=== PATIENT | male | born 1955 | race American Indian/Alaskan Native ===

== ENCOUNTER 2017-04-03 20:30 | Emergency (ER) | payer MEDICARE ==
[2017-04-03 21:53] LABS: Bilirubin,Urine NEG (Negative); Blood,Urine NEG (Negative); Ketones,Urine NEG (Negative); Leukocyte Esterase,Urine NEG (Negative); Mucus,Urine FEW /HPF; Nitrite,Urine POS (Negative); Protein,Urine <15 mg/dL mg/dL (Negative); Urobilinogen,Urine < 2.0 mg/dL (<2.0)
[2017-04-04 06:19] VITALS: BP 170/82
--- NOTE | 2017-04-04 07:40 | Emergency Department Report ---
HPI - General Chief Complaint: Urogenital-Male Time Seen by Provider: 04/04/17 07:02 - HPI HPI: This is a 61-year-old -[place] male who presents to the emergency department from home, dropped off by his sister/chief engineer waterworks, with complaint of burning with urination and difficulty urinating for the past 2 days. The patient has some level of enlarged prostate or prostate issues as he has known elevated PSA levels and follows with Dr. Basurto. The patient has a history of schizophrenia which requires him to have his sister as his chief engineer waterworks. He denies any significant abdominal pain, nausea, vomiting fever. He also has a past medical history of COPD, but is not oxygen dependent, GERD, hypertension. He did not take anything for symptoms prior to presentation. ED Past Medical Hx - Past Medical History Previous Medical History?: Yes Hx Hypertension: Yes Hx Congestive Heart Failure: No Hx Diabetes: No Hx GERD: Yes Hx Psychiatric Treatment: Yes Hx Asthma: No Hx COPD: Yes Hx HIV: No - Surgical History Additional Surgical History: Kwesi foot surgery - Social History Smoking Status: Unknown if ever smoked - Medications Home Medications: Home Medications Medication Instructions Recorded Confirmed Last Taken Type Omeprazole [PriLOSEC] 20 mg PO QDAY 08/31/14 05/04/16 05/04/16 10:00 History 20mg amLODIPine [Norvasc] 10 mg PO DAILY 08/31/14 05/04/16 05/04/16 10:00 History 10mg Hydrochlorothiazide [HCTZ] 25 mg PO QDAY 04/27/16 05/04/16 05/04/16 10:00 History 25mg ARIPiprazole [Abilify TAB] 15 mg PO HS tablet 05/03/16 05/04/16 Unknown Rx cloZAPine [cloZAPine] 1.5 tab PO QHS 05/03/16 05/04/16 Unknown Rx Acetaminophen [Acetaminophen TAB] 650 mg PO Q4H PRN #1 tablet 05/14/16 Unknown Rx levETIRAcetam [Keppra TAB] 750 mg PO BID #60 tablet 05/14/16 Unknown Rx Ciprofloxacin HCl [Ciprofloxacin 500 mg PO BID #10 tablet 04/04/17 Unknown Rx TAB] ED Review of Systems ROS: Stated complaint: DIFFICULTY URINATING/PAIN Other details as noted in HPI Comment: All other systems reviewed and negative Constitutional: denies: chills, fever Eyes: denies: eye pain, eye discharge, vision change ENT: denies: ear pain, throat pain Respiratory: denies: cough, shortness of breath, wheezing Cardiovascular: denies: chest pain, palpitations Gastrointestinal: denies: nausea, vomiting Genitourinary: dysuria. denies: discharge Musculoskeletal: denies: back pain, joint swelling, arthralgia Skin: denies: rash, lesions Neurological: denies: headache, weakness, paresthesias Physical Exam - Physical Exam Vital Signs: Vital Signs 04/03/17 04/04/17 04/04/17 20:54 05:35 06:19 Temperature 97.9 F 98.1 F Pulse Rate 99 H 80 92 H Respiratory 20 20 22 Rate Blood Pressure 149/73 148/88 Blood Pressure 170/82 [Left] O2 Sat by Pulse 97 100 97 Oximetry Physical Exam: GENERAL: The patient is well-developed well-nourished. HEENT: Normocephalic. Atraumatic. Extraocular motions are intact. Patient has moist mucous membranes. NECK: Supple. Trachea is midline. CHEST/LUNGS: Clear to auscultation. There is no respiratory distress noted. HEART/CARDIOVASCULAR: Regular. There is no tachycardia. There is no gallop rub or murmur. ABDOMEN: Abdomen is soft, nontender. Patient has normal bowel sounds. There is no abdominal distention. SKIN: Skin is warm and dry. NEURO: The patient is awake, alert, and oriented. The patient is cooperative. The patient has no focal neurologic deficits. The patient has normal speech. MUSCULOSKELETAL: There is no tenderness or deformity. There is no limitation range of motion. There is no evidence of acute injury. : Patient now has a Summers catheter in place that is draining a large amount of concentrated urine. ED Course Vital Signs 04/03/17 04/04/17 04/04/17 20:54 05:35 06:19 Temperature 97.9 F 98.1 F Pulse Rate 99 H 80 92 H Respiratory 20 20 22 Rate Blood Pressure 149/73 148/88 Blood Pressure 170/82 [Left] O2 Sat by Pulse 97 100 97 Oximetry - Consultations Consultation #1: I spoke with the patient's sister/chief engineer waterworks to let her know of the findings of urinary retention, placement of a Summers catheter, the plan to switch her to a leg bag, and the need to follow-up with Dr. Basurto as soon as possible. 04/04/17 07:37 ED Medical Decision Making - Medical Decision Making 61-year-old male with a history of prostate issues presents with urinary retention and some dysuria. A Summers catheter was placed and the patient has put out about 1 L of concentrated urine. It was tested but the urinalysis does not show any current urinary tract infection. He will be switched to a leg bag and will remain intact until he can follow-up with his urologist, Dr. Basurto. The patient will be placed on antibiotics prophylactically as the Summers catheter can be a nidus for infection. However patient currently does not appear to be in any distress. Vital signs stable throughout his ED course. - Differential Diagnosis BPH, malignancy, urethral stricture Critical Care Time: No Critical care attestation.: If time is entered above; I have spent that time in minutes in the direct care of this critically ill patient, excluding procedure time. ED Disposition Clinical Impression: Urinary retention Disposition: DISCHARGED TO HOME OR SELFCARE Is pt being admited?: No Condition: Stable Instructions: Urinary Retention in Men (ED), Urinary Leg Bag (GEN) Additional Instructions: Please follow-up with your urologist as soon as possible. The Summers catheter will remain intact until you're able to follow up with urology. You've been placed on antibiotics prophylactically. Return to the emergency department with any development of fever, continued urinary retention, or any acute distress. Prescriptions: Ciprofloxacin HCl [Ciprofloxacin TAB] 500 mg PO BID #10 tablet Referrals: NANDINI BASURTO MD [Staff Physician] - [facility] Time of Disposition: 07:40
== END 2017-04-04 08:16 | disposition home or self-care (01) ==
LOC: ED 20:30
DX: R33.9 Retention of urine, unspecified (principal); I10 Essential (primary) hypertension; J44.9 Chronic obstructive pulmonary disease, unspecified
CPT/HCPCS: 51702; 81001; 87086

== ENCOUNTER 2017-06-04 09:27 | Emergency (ER) | payer MEDICARE ==
[2017-06-04 09:38] VITALS: BP 147/84
--- NOTE | 2017-06-04 10:12 | Emergency Department Report ---
ED Abdominal Pain HPI - General Chief Complaint: Abdominal Pain Stated Complaint: UNABLE TO URINATE/ Time Seen by Provider: 06/04/17 10:02 Source: patient, family Mode of arrival: Ambulatory Limitations: Physical Limitation - History of Present Illness Initial Comments: PATIENT HAS H/O URINE RETENTION, HIS CATHETER WAS NOT WORKING AND C/O LOWER ABDOMINAL PAIN AND DISTENSION. MD Complaint: abdominal pain -: Gradual Severity scale (0 -10): 10 Quality: fullness - Related Data Home Medications Medication Instructions Recorded Confirmed Last Taken Omeprazole [PriLOSEC] 20 mg PO QDAY 08/31/14 05/04/16 05/04/16 10:00 20mg amLODIPine [Norvasc] 10 mg PO DAILY 08/31/14 05/04/16 05/04/16 10:00 10mg Hydrochlorothiazide [HCTZ] 25 mg PO QDAY 04/27/16 05/04/16 05/04/16 10:00 25mg Previous Rx's Medication Instructions Recorded Last Taken Type ARIPiprazole [Abilify TAB] 15 mg PO HS tablet 05/03/16 Unknown Rx cloZAPine [cloZAPine] 1.5 tab PO QHS 05/03/16 Unknown Rx Acetaminophen [Acetaminophen TAB] 650 mg PO Q4H PRN #1 tablet 05/14/16 Unknown Rx levETIRAcetam [Keppra TAB] 750 mg PO BID #60 tablet 05/14/16 Unknown Rx Ciprofloxacin HCl [Ciprofloxacin 500 mg PO BID #10 tablet 04/04/17 Unknown Rx TAB] Allergies Allergy/AdvReac Type Severity Reaction Status Date / Time No Known Allergies Allergy Verified 06/04/17 09:38 ED Review of Systems ROS: Stated complaint: UNABLE TO URINATE/ Other details as noted in HPI Comment: All other systems reviewed and negative Constitutional: denies: chills, fever Respiratory: denies: cough, shortness of breath Cardiovascular: denies: chest pain, palpitations Endocrine: denies: excessive sweating Gastrointestinal: abdominal pain. denies: constipation Genitourinary: urgency, frequency. denies: hematuria, discharge, testicular pain, testicular mass Neurological: denies: headache ED Past Medical Hx - Past Medical History Hx Hypertension: Yes Hx Congestive Heart Failure: No Hx Diabetes: No Hx GERD: Yes Hx Psychiatric Treatment: Yes Hx Asthma: No Hx COPD: Yes Hx HIV: No - Surgical History Additional Surgical History: Kwesi foot surgery - Social History Smoking Status: Never Smoker Substance Use Type: None - Medications Home Medications: Home Medications Medication Instructions Recorded Confirmed Last Taken Type Omeprazole [PriLOSEC] 20 mg PO QDAY 08/31/14 05/04/16 05/04/16 10:00 History 20mg amLODIPine [Norvasc] 10 mg PO DAILY 08/31/14 05/04/16 05/04/16 10:00 History 10mg Hydrochlorothiazide [HCTZ] 25 mg PO QDAY 04/27/16 05/04/16 05/04/16 10:00 History 25mg ARIPiprazole [Abilify TAB] 15 mg PO HS tablet 05/03/16 05/04/16 Unknown Rx cloZAPine [cloZAPine] 1.5 tab PO QHS 05/03/16 05/04/16 Unknown Rx Acetaminophen [Acetaminophen TAB] 650 mg PO Q4H PRN #1 tablet 05/14/16 Unknown Rx levETIRAcetam [Keppra TAB] 750 mg PO BID #60 tablet 05/14/16 Unknown Rx Ciprofloxacin HCl [Ciprofloxacin 500 mg PO BID #10 tablet 04/04/17 Unknown Rx TAB] ED Physical Exam - General Limitations: No Limitations, Physical Limitation General appearance: alert, in distress - Neck Neck exam: Present: normal inspection. Absent: tenderness - Respiratory Respiratory exam: Present: normal lung sounds bilaterally. Absent: wheezes, rales - Cardiovascular Cardiovascular Exam: Present: tachycardia - GI/Abdominal GI/Abdominal exam: Present: soft, distended, tenderness. Absent: guarding, rebound - exam: Absent: testicular tenderness, urethral discharge, scrotal swelling External exam: Present: normal external exam - Neurological Exam Neurological exam: Present: alert, oriented X3, CN II-XII intact - Skin Skin exam: Present: warm, dry, intact ED Course Vital Signs 06/04/17 06/04/17 09:31 10:07 Temperature 98.5 F Pulse Rate 110 H Respiratory 16 16 Rate Blood Pressure 147/84 Blood Pressure 147/84 [Left] O2 Sat by Pulse 97 97 Oximetry - Reevaluation(s) Reevaluation #1: 06/04/17 11:08 PATIENT STATED THAT HE FEEL MUCH BETTER. ADVISED TO FOLLOW UP WITH HIS UROLOGIST IN THE NEXT 2-3 DAYS. ED Medical Decision Making - Medical Decision Making A LEIVA CATHETER PLACED, PATIENT IMMEDIATELY HAVE MORE THAN 1000ML OUT. HE STATED THAT HE FEEL MUCH BETTER. Critical care attestation.: If time is entered above; I have spent that time in minutes in the direct care of this critically ill patient, excluding procedure time. ED Disposition Clinical Impression: Abdominal pain, Urinary retention Disposition: DC-01 TO HOME OR SELFCARE Is pt being admited?: No Does the pt Need Aspirin: No Condition: Stable Instructions: Urinary Retention in Men (ED), Urinary Leg Bag (GEN) Referrals: PRIMARY CARE, [Primary Care Provider] - 3-5 Days
[2017-06-04 10:18] LABS: Bilirubin,Urine NEG (Negative); Blood,Urine MOD (Negative); Ketones,Urine NEG (Negative); Leukocyte Esterase,Urine LG (Negative); Nitrite,Urine NEG (Negative); Protein,Urine <15 mg/dL mg/dL (Negative); Urobilinogen,Urine < 2.0 mg/dL (<2.0)
== END 2017-06-04 11:26 | disposition home or self-care (01) ==
LOC: ED 09:27
DX: R33.9 Retention of urine, unspecified (principal); R10.30 Lower abdominal pain, unspecified; I10 Essential (primary) hypertension; K21.9 Gastro-esophageal reflux disease without esophagitis; J44.9 Chronic obstructive pulmonary disease, unspecified
CPT/HCPCS: 51702; 81001

== ENCOUNTER 2017-06-15 12:15 | Inpatient (IN) | payer MEDICARE ==
[2017-06-13 15:23] LABS: Basophils % (Auto) 0.9 % (0.0-1.8); Eosinophils % (Auto) 2.3 % (0.0-4.3); Hematocrit 34.2 % (35.5-45.6); Hemoglobin 11.3 gm/dl (11.8-15.2); Mean Corpuscular HGB Conc 33 % (32-34); Mean Corpuscular Hemoglobin 30 pg (28-32); Mean Corpuscular Volume 90 fl (84-94); Platelet Count 298 K/mm3 (140-440); Red Blood Count 3.82 M/mm3 (3.65-5.03); Red Cell Distribution Width 14.6 % (13.2-15.2); White Blood Count 9.1 K/mm3 (4.5-11.0)
[2017-06-13 15:36] LABS: INR 0.93 (0.87-1.13)
[2017-06-13 15:37] LABS: Partial Thromboplastin Time 28.3 Sec. (24.2-36.6)
[2017-06-13 18:20] LABS: Alanine Aminotransferase 12 units/L (7-56); Albumin 3.6 g/dL (3.9-5); Albumin/Globulin Ratio 0.9 %; Alkaline Phosphatase 79 units/L (35-129); Anion Gap 20 mmol/L; BUN/Creatinine Ratio 16.66; Blood Urea Nitrogen 15 mg/dL (9-20); Calcium 8.6 mg/dL (8.4-10.2); Carbon Dioxide 25 mmol/L (22-30); Chloride 96.6 mmol/L (98-107); Glucose 97 mg/dL (75-100); Potassium 3.1 mmol/L (3.6-5.0); Sodium 138 mmol/L (137-145); Total Protein 7.4 g/dL (6.3-8.2)
[~2017-06-15 12:15] MED LIST: NACL 0.9% 1000 ML 1,000 ML IV SCH; NACL 0.9% IR ONE; PEPCID PO NR; SORBITOL-MANNITOL IRRIG IR ONE
[2017-06-15] MEDS ORDERED: DIPRIVAN 10 MG/ML IV ONE ×2 (13:24→23:57)
[2017-06-15] MEDS ORDERED: DILAUDID ONE ×2 (13:24→17:34)
[2017-06-15] MEDS ORDERED: XYLOCAINE MPF 2% ONE ×2 (13:29→23:57)
[2017-06-15] MEDS ORDERED: DECADRON ONE (14:00)
--- NOTE | 2017-06-15 14:00 | Anesthesia Consultation ---
Anesthesia Consult and Med Hx Date of service: 06/15/17 - Airway Anesthetic Teeth Evaluation: Dentures (upper and lower) ROM Head & Neck: Adequate Mental/Hyoid Distance: Adequate Mallampati Class: Class II Intubation Access Assessment: Probably Good - Pulmonary Exam CTA: Yes - Cardiac Exam Cardiac Exam: RRR - Pre-Operative Health Status ASA Pre-Surgery Classification: ASA3 - Pulmonary Hx Smoking: Yes (STOPPED X 9 YRS-2PPD X 40 YRS) Hx Asthma: No COPD: Yes Hx Pneumonia: No Hx Sleep Apnea: No (HOWIE PRE SCREEN HIGH RISK) - Cardiovascular System Hx Hypertension: Yes (X 9 YRS) - Central Nervous System Hx Seizures: Yes (X1 AFTER LUM MONTIEL-ON MEDS) Hx Back Pain: Yes Hx Psychiatric Problems: Yes (MULTIPLE "MENTAL BREAKDOWNS"-FIRST @13 YRS) - Gastrointestinal Hx Gastroesophageal Reflux Disease: Yes (on meds) - Endocrine Hx End Stage Renal Disease: No - Other Systems Hx Cancer: No
--- NOTE | 2017-06-15 14:01 | Anesthesia Day of Surgery ---
Anesthesia Day of Surgery - Day of Surgery Patient Examined: Yes Patient H&P Reviewed: Yes Patient is NPO: Yes
[2017-06-15] MEDS ORDERED: NACL BACTERIOSTATIC INFILTRATI ONE (14:39)
[2017-06-15] MEDS ORDERED: PEPCID PO NR (15:00)
[2017-06-15] MEDS ORDERED: ANCEF/STERILE WATER 2 GM/20 ML IV NR (15:00)
[2017-06-15] MEDS ORDERED: NACL 0.9% IR ONE (16:15)
[2017-06-15] MEDS ORDERED: SORBITOL-MANNITOL IRRIG IR ONE (16:15)
[2017-06-15] MEDS ORDERED: OMNIPAQUE 300 MG/50 ML (CATH LAB) IV ONE (16:15)
[2017-06-15] MEDS ORDERED: ZOFRAN ONE ×2 (16:28→23:59)
--- NOTE | 2017-06-15 16:48 | Fluoroscopy Report ---
RETROGRADE PYELOGRAM: History: BPH, urinary retention, elevated PSA. Findings: There is adequate filling of the ureters and intrarenal collecting systems with no filling defects or anatomic abnormalities identified.
--- NOTE | 2017-06-15 17:06 | Short Stay Summary ---
Short Stay Documentation Date of service: 06/15/17 - History H&P: obtained from office - Allergies and Medications Current Medications: Allergies No Known Allergies Allergy (Verified 06/04/17 09:38) Home Medications Medication Instructions Recorded Confirmed Last Taken Type Omeprazole [PriLOSEC] 20 mg PO QDAY 08/31/14 06/15/17 06/14/17 History amLODIPine [Norvasc] 10 mg PO DAILY 08/31/14 06/15/17 06/14/17 History ARIPiprazole [Abilify TAB] 15 mg PO HS tablet 05/03/16 06/13/17 06/14/17 Rx levETIRAcetam [Keppra TAB] 750 mg PO BID #60 tablet 05/14/16 06/13/17 06/15/17 07:00 Rx Losartan/Hydrochlorothiazide 1 tab PO DAILY 06/13/17 06/15/17 06/15/17 07:00 History [Losartan-Hctz 100-25 mg Tab] Tamsulosin [Flomax] 0.8 mg PO QDAY 06/13/17 06/13/17 06/14/17 History cloNIDine [Catapres] 0.2 mg PO TID 06/13/17 06/15/17 06/14/17 History cloZAPine [cloZAPine] 150 mg PO QHS 06/13/17 06/15/17 06/15/17 07:00 History Active Medications Cefazolin Sodium (Ancef/Sterile Water 2 Gm/20 Ml) 2 gm IV PREOP NR Stop: 06/15/17 23:59 Famotidine (Pepcid) 20 mg PO PREOP NR Stop: 06/15/17 23:59 Last Admin: 06/15/17 14:51 Dose: 20 mg Sodium Chloride (Nacl 0.9% 1000 Ml) 1,000 mls @ 75 mls/hr IV DIRECT CANDY Last Admin: 06/15/17 14:55 Dose: 75 mls/hr - Brief post op/procedure progress note Date of procedure: 06/15/17 Pre-op diagnosis: BPH,RETENTION, ELEVATED PSA Post-op diagnosis: same Procedure: CYSTO, RPG, TURP, TRANSRECTAL BX OF PROSTATE Anesthesia: GETA Surgeon: NANDINI JIMENEZ Estimated blood loss: 50-100ml Pathology: list Specimen disposition: to lab (PROSTATE CHIPS & CORES) Condition: stable - Hospital course Hospital course: BEBETO YADAV ON CHART - Disposition Condition at discharge: Stable Disposition: DC-01 TO HOME OR SELFCARE Short Stay Discharge Plan Follow up with: KELTON LR MD [Primary Care Provider] - 7 Days
[2017-06-15] MEDS ORDERED: TYLENOL PO PRN (17:07)
[2017-06-15] MEDS ORDERED: NORCO 5/325 PO PRN (17:07)
[2017-06-15] MEDS ORDERED: ZOFRAN IV PRN (17:07)
[2017-06-15] MEDS ORDERED: AMBIEN PO PRN (17:07)
[2017-06-15] MEDS ORDERED: NARCAN 0.4 MG/1 ML IV PRN (17:07)
--- NOTE | 2017-06-15 17:42 | Post Anesthesia Evaluation ---
- Post Anesthesia Evaluation Patient Participated: Yes Airway Patent: Yes Stable Respiratory Function: Yes Temp > 96.8F: Yes Pain Manageable: Yes Adequeate Hydration: Yes Anesthesia Complications: No Block Receding Appropriately: Not Applicable
[2017-06-15 17:49] LABS: Basophils % (Auto) 0.7 % (0.0-1.8); Eosinophils % (Auto) 2.7 % (0.0-4.3); Hemoglobin 11.9 gm/dl (11.8-15.2); White Blood Count 9.2 K/mm3 (4.5-11.0)
[2017-06-15 17:59] LABS: Hematocrit 35.8 % (35.5-45.6); Mean Corpuscular HGB Conc 33 % (32-34); Mean Corpuscular Hemoglobin 30 pg (28-32); Mean Corpuscular Volume 89 fl (84-94); Platelet Count 307 K/mm3 (140-440); Red Blood Count 4.03 M/mm3 (3.65-5.03); Red Cell Distribution Width 14.1 % (13.2-15.2)
[2017-06-15 18:01] LABS: Anion Gap 15 mmol/L; BUN/Creatinine Ratio 15.71; Blood Urea Nitrogen 11 mg/dL (9-20); Calcium 8.4 mg/dL (8.4-10.2); Carbon Dioxide 27 mmol/L (22-30); Chloride 100.7 mmol/L (98-107); Glucose 99 mg/dL (75-100); Potassium 3.1 mmol/L (3.6-5.0); Sodium 140 mmol/L (137-145)
[2017-06-15] MEDS ORDERED: NACL 0.9% 1,000 ML IR ONE ×2 (18:08→22:12)
--- NOTE | 2017-06-15 18:10 | Admit Criteria Form ---
<FABRIZIONAVEENJEROMELEIGH - Last Filed: 06/16/17 08:18> Admission Criteria Met: Yes <TIM WALDEN - Last Filed: 06/16/17 13:34> Admission Criteria Documentation: UROLOGIC DISEASE [facility] Clinical Indications for Admission to Inpatient Care (Place ' X' for any and all applicable criteria): Hospital admission is needed for appropriate care of the patient because of 1 or more of the following: [ ]I. New-onset Reduced urine output, or hydronephrosis remaining after emergency or observation level care (as appropriate ) [ ]II. Renal disease needing inpatient care indicated by 1 or more of the following(2)(3)(4): [ ]a) Acute renal failure [ ]b) Significant uremic complications [ ]c) Acute kidney injury (that does not qualify as Acute renal failure ) requiring inpatient care indicated by ALL of the following(5)(6)(7)(8) (9): [ ]i) Worsening clinical status (eg, rising creatinine) despite outpatient and observation care treatment (eg, hydration) [ ]ii) Acute kidney injury indicated by 1 or more of the following: [ ]1) 2-fold or more rise in serum creatinine from baseline [ ]2) Reduction of more than 50% in estimated glomerular filtration rate from baseline [ ]3) Urine output less than 0.5 mL/kg/hr for 12 hours despite adequate volume status [ ]d) Systemic cause (eg, Goodpasture syndrome ) needing inpatient care [ ]e) Rapidly progressive renal disease needing inpatient care (eg, plasmapheresis, immunosuppression ) Anasarca needing inpatient care [ ]f) Hemoptysis [ ]g) Hemolysis, thrombosis, or infraction [ ]h) Anasarca needing inpatient care [ ]III. New-onset or uncontrolled nephrogenic diabetes insipidus [ ]IV. Urologic infection requiring inpatient care as indicated by 1 or more of the following(10)(11)(12): [ ]a) Hemodynamic instability [ ]b) Dehydration that is severe or persistent [ ]c) Failure of outpatient treatment [ ]d) Arian's gangrene [ ]e) Urinary obstruction [ ]f) Immunocompromised state (eg, chronic steroid use ) [ ]g) Known renal or urologic abnormalities(eg, indwelling catheter, structural abnormalities ) [ ]h) Recent urologic manipulation or procedure Urinary obstruction [ ]i) Abscess requiring drainage Immunocompromised state [ ]V. Acute urinary retention requiring inpatient management as indicated by ANY ONE of the following(1)(13): [ ]a) Retention cannot be alleviated via emergency or observation level care (eg, urinary catheter placement) [ ]b) Hemodynamic instability [ ]c) Acute neurologic etiology (eg, cauda equina) [ ]d) Dehydration or other complications not manageable with emergency or observation level care [ ]e) Acute kidney injury (that does not qualify as Acute renal failure ) requiring inpatient care indicated by ALL of the following(5)(6)(7)(8) (9): [ ]i) Acute kidney injury indicated by ANY ONE of the following: [ ]1) 2-fold or more rise in serum creatinine from baseline [ ]2) Reduction of more than 50% in estimated glomerular filtration rate from baseline [ ]ii) Worsening clinical status (eg, rising creatinine) despite outpatient and observation care treatment (eg, hydration) [ ]. Gross hematuria requiring inpatient management as indicated by ANY ONE of the following(1)(2): [ ]a) Evidence of renal obstruction [ ]b) Reduced urine output [ ]c) Clot retention after urinary catheterization and irrigation [ ]d) Severe Anemia [ ]e) Systemic cause needing inpatient treatment (eg, Goodpasture syndrome) [ ]VII. Priapism not responsive to emergency or observation care treatment [ ]VII. Scrotal, testicular, or epididymal disorder requiring inpatient care indicated by 1 or more of the following(1)(14)(15)(16): [ ]a) Scrotal edema or infection not manageable with emergency or observation level care [ ]b) Orchitis not manageable with emergency or observation level care [ ]c) Epididymitis not manageable with emergency or observation level of care [ ]d) Other scrotal, testicular, or epididymal disorder (eg, infection, inflammation) not manageable with emergency or observation level care [ ]IX. Complications of transplanted kidney indicated by 1 or more of the following [ ]a) Acute graft rejection requiring inpatient management (eg, intravenous immunosuppression) [ ]b) Acute kidney injury indicated by ALL of the following i) Acute kidney injury indicated by 1 or more of the following 1) 2-fold or more rise in serum creatinine from baseline 2) Reduction of more than 50% in estimated glomerular filtration rate from baseline 3) Urine output less than 0.5 mL/kg/hr for 12 hours despite adequate volume status ii) Kidney injury too severe or not responsive to outpatient and observation care treatment (eg, hydration) [ ]c) Infection requiring inpatient management (eg, Hemodynamic instability, need for intravenous antimicrobial treatment) [ ]d) Other complication of transplanted kidney requiring patient management (eg, severe diarrhea leading to malabsorption) [ ]X. Trauma to renal, genital, or urologic system requiring inpatient medical care [XXI. Urologic Disease condition, symptom, or finding for which emergency and observation care have failed or are not considered appropriate. The original [employer] content created by [employer] has been revised. The portions of the content which have been revised are identified through the use of italic text or in bold, and [facility] has neither reviewed nor approved the modified material. All other unmodified content is copyright [employer]. Please see references footnoted in the original [employer] edition 2016 Admission Criteria Met: Yes
[2017-06-15] MEDS: NACL 0.9% IR SCH ×2 (18:40→18:49)
[2017-06-15] MEDS ORDERED: NACL 0.45% 1000 ML 1,000 ML IV SCH ×2 (19:00)
[2017-06-15] MEDS: MORPHINE IV PRN (20:00)
--- NOTE | 2017-06-15 22:42 | Operative Report ---
PREOPERATIVE DIAGNOSES: Benign prostatic hypertrophy, urinary retention, elevated PSA. POSTOPERATIVE DIAGNOSES: Benign prostatic hypertrophy, urinary retention, elevated PSA. PROCEDURE: Cystoscopy, bilateral retrograde pyelograms, transurethral resection of the prostate, transrectal biopsy. SURGEON: Andrea Basurto MD ANESTHESIA: General. ESTIMATED BLOOD LOSS: Minimal. FLUIDS: Crystalloid. COMPLICATIONS: None. INDICATIONS: This patient is a 62-year-old gentleman known to my service with a history of BPH and elevated PSA. He had a biopsy done in 2003 that was negative. We will continue to follow his PSA levels, also he developed BPH, started Flomax, but ultimately the patient went into urinary retention and failed several voiding trials. Urodynamic testing revealed he does have a strong detrusor contraction, however, peak flow was 7 mL second. He presents now for TURP. His mother and sister had been informed. His PSA was also high as well as his apifiny was 77. DESCRIPTION OF PROCEDURE: The patient was taken to the operative suite, placed in a supine position. After adequate general anesthesia, placed in a dorsal lithotomy position, prepped and draped in a sterile fashion. Pancystourethroscopy was performed with 21-Tristanian Storz cystoscope. No urethral abnormalities. His prostate revealed trilobar obstruction. He had diffuse trabeculation in the bladder. Bilateral retrograde pyelograms were obtained with an 8-Tristanian Linda catheter and 8 mL of contrast. No filling defects or obstruction. He did have some J hooking using a 27-Tristanian resectoscope and loop was placed with the cutting and coag on 160 and 60, transurethral resection of the prostate was performed in a systematic fashion, taking down the median lobe in the left and right lateral lobes respectively. Chips were evacuated out with the Mimvi evacuator. Upon completion of the procedure of the TURP, the veru and external sphincter as well as ureteral orifices were intact. Using a Bard biopsy gun, transrectal biopsy of the left and right lobes were taken. The patient tolerated the procedure well. A 24-Tristanian 3-way catheter to a Cesar drip was inserted. He was extubated and taken to recovery room. He will go home on Cipro and [place] after 24 hours of observation. JOB# [id number] [facility]
[2017-06-15] MEDS ORDERED: NACL 0.9% 1000 ML 1,000 ML IV SCH (23:45)
[2017-06-16 00:34] LABS: Hematocrit 28.4 % (35.5-45.6); Hemoglobin 9.2 gm/dl (11.8-15.2); Mean Corpuscular HGB Conc 32 % (32-34); Mean Corpuscular Hemoglobin 29 pg (28-32); Mean Corpuscular Volume 91 fl (84-94); Platelet Count 301 K/mm3 (140-440); Red Blood Count 3.14 M/mm3 (3.65-5.03); Red Cell Distribution Width 14.4 % (13.2-15.2); White Blood Count 14.7 K/mm3 (4.5-11.0)
[2017-06-16 00:56] LABS: Alanine Aminotransferase 9 units/L (7-56); Albumin 3.1 g/dL (3.9-5); Albumin/Globulin Ratio 1.1 %; Alkaline Phosphatase 71 units/L (35-129); Anion Gap 18 mmol/L; Blood Urea Nitrogen 14 mg/dL (9-20); Calcium 7.9 mg/dL (8.4-10.2); Carbon Dioxide 27 mmol/L (22-30); Chloride 100.8 mmol/L (98-107); Glucose 155 mg/dL (75-100); Sodium 142 mmol/L (137-145); Total Protein 5.8 g/dL (6.3-8.2)
[2017-06-16] MEDS ORDERED: NACL 0.9% IR ONE ×2 (01:03)
[2017-06-16 01:14] LABS: Potassium 3.9 mmol/L (3.6-5.0)
[2017-06-16] MEDS ORDERED: ePHEDrine SULFATE ONE (01:24)
[2017-06-16] MEDS ORDERED: QUELICIN ONE (01:26)
[2017-06-16] MEDS ORDERED: NEO SYNEPHRINE ONE ×2 (01:29→01:32)
[2017-06-16] MEDS ORDERED: NACL 0.9% 100 ML ONE (01:30)
[2017-06-16] MEDS ORDERED: ZEMURON IV ONE (01:40)
[2017-06-16] MEDS ORDERED: NACL 0.9% 1000 ML 1,000 ML ONE ×2 (01:59)
[2017-06-16] MEDS: ANCEF/NS 1 GM/50 ML 1 GM/50 ML BAG IV SCH ×2 (02:00→12:03)
[2017-06-16] MEDS ORDERED: BLOXIVERZ ONE (02:13)
[2017-06-16] MEDS ORDERED: ROBINUL ONE (02:13)
--- NOTE | 2017-06-16 02:53 | Post Operative Note ---
Date of procedure: 06/16/17 Pre-op diagnosis: clot retention Post-op diagnosis: same Findings: expected post turp oozing; bladder full of clots which would not easily irrigate. Procedure: cysto evacuation of clots Anesthesia: ELISABETH Surgeon: CHALO HORNE Estimated blood loss: minimal Pathology: none Condition: stable Disposition: PACU
[2017-06-16] MEDS: MORPHINE IV PRN (02:55)
[2017-06-16] MEDS ORDERED: PROVENTIL IH PRN (03:00)
[2017-06-16] MEDS ORDERED: PROVENTIL IH ONE (03:04)
[2017-06-16 03:15] LABS: Basophils % (Manual) 0 % (0.0-1.8); Blastocytes % (Manual) 0 %; Eosinophils % (Manual) 0 % (0.0-4.3); Total Cells Counted Percent 0
[2017-06-16 03:17] LABS: Anisocytosis RARE; Diff Status Complete; Platelet Clumps Rare
[2017-06-16] MEDS: DILAUDID IV PRN ×2 (03:40→06:25)
[2017-06-16] MEDS ORDERED: DILAUDID ONE (03:45)
--- NOTE | 2017-06-16 06:14 | Post Anesthesia Evaluation ---
- Post Anesthesia Evaluation Patient Participated: Yes Airway Patent: Yes Stable Respiratory Function: Yes Nausea/Vomiting: No Temp > 96.8F: Yes Pain Manageable: Yes Adequeate Hydration: Yes Anesthesia Complications: No Block Receding Appropriately: Not Applicable Other Comments: Patient is awake and alert. Wheezing has resolved. He is in no respiratory distress and SaO2 is 100% on 2L NC. No clinical indication of aspiration.
[2017-06-16 06:19] LABS: Hematocrit 27.3 % (35.5-45.6); Hemoglobin 8.8 gm/dl (11.8-15.2); Mean Corpuscular HGB Conc 32 % (32-34); Mean Corpuscular Hemoglobin 29 pg (28-32); Mean Corpuscular Volume 90 fl (84-94); Platelet Count 274 K/mm3 (140-440); Red Blood Count 3.03 M/mm3 (3.65-5.03); Red Cell Distribution Width 14.3 % (13.2-15.2); White Blood Count 11.6 K/mm3 (4.5-11.0)
--- NOTE | 2017-06-16 06:21 | Anesthesia Consultation ---
Anesthesia Consult and Med Hx Date of service: 06/16/17 - Airway ROM Head & Neck: Adequate Mental/Hyoid Distance: Adequate Mallampati Class: Class II Intubation Access Assessment: Probably Good - Pulmonary Exam CTA: Yes - Cardiac Exam Cardiac Exam: RRR - Pre-Operative Health Status ASA Pre-Surgery Classification: ASA3 Proposed Anesthetic Plan: General - Pre-Anesthesia Comment Pre-Anesthesia Comments: Patient returned to OR due to malfunction of Cesar drip. He was NPO per report from floor except for a few ice chips. - Pulmonary Hx Smoking: Yes (STOPPED X 9 YRS-2PPD X 40 YRS) Hx Asthma: No COPD: Yes Hx Pneumonia: No Hx Sleep Apnea: No (HOWIE PRE SCREEN HIGH RISK) - Cardiovascular System Hx Hypertension: Yes (X 9 YRS) - Central Nervous System Hx Seizures: Yes (X1 AFTER LUM MONTIEL-ON MEDS) Hx Back Pain: Yes Hx Psychiatric Problems: Yes (MULTIPLE "MENTAL BREAKDOWNS"-FIRST @13 YRS) - Gastrointestinal Hx Gastroesophageal Reflux Disease: Yes (on meds) - Endocrine Hx End Stage Renal Disease: No - Other Systems Hx Cancer: No
[2017-06-16 06:30] LABS: Anion Gap 16 mmol/L; Blood Urea Nitrogen 14 mg/dL (9-20); Calcium 7.5 mg/dL (8.4-10.2); Carbon Dioxide 25 mmol/L (22-30); Chloride 102.2 mmol/L (98-107); Glucose 129 mg/dL (75-100); Potassium 3.5 mmol/L (3.6-5.0); Sodium 140 mmol/L (137-145)
[2017-06-16 07:18] LABS: Anisocytosis RARE; Basophils % (Manual) 0 % (0.0-1.8); Blastocytes % (Manual) 0 %; Diff Status Complete; Eosinophils % (Manual) 0 % (0.0-4.3)
--- NOTE | 2017-06-16 08:16 | Ultrasound Report ---
ULTRASOUND PELVIS LIMITED History: Hematuria, bladder mass. Findings: Targeted transabdominal grayscale ultrasound was performed on the bladder. A Summers catheter is identified near the base of the bladder. There is an echogenic mass like lesion which appears to be adherent to the bulb of the Summers catheter. This most likely represents a thrombus. Less likely this could represent an exophytic bladder mass. Impression: Bladder mass versus thrombus adherent to the catheter. I favor thrombus.
[2017-06-16] MEDS ORDERED: NACL 0.9% 500 ML 500 ML IV ONE (08:22)
--- NOTE | 2017-06-16 08:42 | Fluoroscopy Report ---
Operative cystogram. History: Clot retention. Findings: The bladder is opacified and appears normal in size and contour. Intraluminal filling defects are consistent with thrombus per clinical history. There was no vesicoureteral reflux. No other significant findings.
[2017-06-16] MEDS: NACL 0.9% IR SCH ×6 (09:00→22:27)
--- NOTE | 2017-06-16 09:00 | XRay Report ---
AP CHEST: HISTORY: Aspiration, shortness of breath AP view of the chest demonstrates a normal mediastinal and cardiac contour with clear lungs and normal bony and soft tissue structures. IMPRESSION: Unremarkable AP chest.
[2017-06-16] MEDS ORDERED: KEPPRA 750 MG in D5W 100 ML IV SCH (11:00)
[2017-06-16] MEDS: KEPPRA PO SCH ×2 (11:15→22:24)
[2017-06-16] MEDS: LACTATED RINGERS 1,000 ML IV SCH (12:30)
[2017-06-16] MEDS ORDERED: NACL 0.9% 1,000 ML IR ONE (18:45)
--- NOTE | 2017-06-16 18:55 | Progress Note ---
Subjective Date of service: 06/16/17 Interval history: s/p TURP 06-15-17 - bleeding on floor (issue with CBI fluids) cysto clot evac today 6:30pm----irrigates well keep fluid bags & irrigation kit at bedside (informed nurse) ?home tomorrow with langston check labs in am Objective - Constitutional Vitals: Vital Signs - 12hr 06/16/17 06/16/17 06/16/17 07:00 08:00 09:00 Temperature 98.8 F Pulse Rate 102 H 107 H 105 H Respiratory 14 19 16 Rate Blood Pressure 85/55 127/88 114/65 O2 Sat by Pulse 99 100 97 Oximetry 06/16/17 06/16/17 06/16/17 10:00 12:00 13:00 Temperature 97.3 F L Pulse Rate 99 H 100 H 102 H Respiratory 13 15 14 Rate Blood Pressure 91/53 89/50 104/59 O2 Sat by Pulse 98 99 99 Oximetry 06/16/17 06/16/17 14:00 16:00 Temperature 97.6 F 98.9 F Pulse Rate 102 H 104 H Respiratory 18 18 Rate Blood Pressure 108/58 113/56 O2 Sat by Pulse 99 100 Oximetry - Labs CBC & Chem 7: 06/16/17 05:52 06/16/17 05:52 Labs: Abnormal lab results 06/15/17 06/16/17 06/16/17 Range/Units 14:45 00:13 00:13 WBC 14.7 H (4.5-11.0) K/mm3 RBC 3.14 L (3.65-5.03) M/mm3 Hgb 9.2 L (11.8-15.2) gm/dl Hct 28.4 L D (35.5-45.6) % Seg Neuts % (Manual) 100.0 H (40.0-70.0) % Lymphocytes % (Manual) 0 L (13.4-35.0) % Seg Neutrophils # Man 14.7 H (1.8-7.7) K/mm3 Lymphocytes # (Manual) 0.0 L (1.2-5.4) K/mm3 Potassium (3.6-5.0) mmol/L Glucose 155 H (75-100) mg/dL Calcium 7.9 L (8.4-10.2) mg/dL Total Protein 5.8 L D (6.3-8.2) g/dL Albumin 3.1 L (3.9-5) g/dL Crossmatch See Detail 06/16/17 06/16/17 Range/Units 05:52 05:52 WBC 11.6 H (4.5-11.0) K/mm3 RBC 3.03 L (3.65-5.03) M/mm3 Hgb 8.8 L (11.8-15.2) gm/dl Hct 27.3 L (35.5-45.6) % Seg Neuts % (Manual) 95.0 H (40.0-70.0) % Lymphocytes % (Manual) 3.0 L (13.4-35.0) % Seg Neutrophils # Man 11.0 H (1.8-7.7) K/mm3 Lymphocytes # (Manual) 0.3 L (1.2-5.4) K/mm3 Potassium 3.5 L (3.6-5.0) mmol/L Glucose 129 H (75-100) mg/dL Calcium 7.5 L (8.4-10.2) mg/dL Total Protein (6.3-8.2) g/dL Albumin (3.9-5) g/dL Crossmatch
[2017-06-16 19:50] LABS: Basophils % (Auto) 0.1 % (0.0-1.8); Eosinophils % (Auto) 0.1 % (0.0-4.3); Hematocrit 22.1 % (35.5-45.6); Hemoglobin 7.1 gm/dl (11.8-15.2); Mean Corpuscular HGB Conc 32 % (32-34); Mean Corpuscular Hemoglobin 29 pg (28-32); Mean Corpuscular Volume 91 fl (84-94); Platelet Count 236 K/mm3 (140-440); Red Blood Count 2.44 M/mm3 (3.65-5.03); Red Cell Distribution Width 14.3 % (13.2-15.2); White Blood Count 15.2 K/mm3 (4.5-11.0)
[2017-06-16 20:10] LABS: Anion Gap 14 mmol/L; Blood Urea Nitrogen 12 mg/dL (9-20); Calcium 7.1 mg/dL (8.4-10.2); Carbon Dioxide 27 mmol/L (22-30); Chloride 101.2 mmol/L (98-107); Glucose 94 mg/dL (75-100); Sodium 139 mmol/L (137-145)
--- NOTE | 2017-06-16 20:36 | Consultation ---
REQUESTING PHYSICIAN: Dr. Sena. REASON FOR CONSULT: Medical management for low blood pressure in a postop patient. HISTORY OF PRESENT ILLNESS: The patient is a 62-year-old male who underwent transurethral radical prostatectomy and cystoscopy yesterday and was brought out of the operating room. The patient was noted to have blocked ureteral catheter and was going to be taken back to the OR to adjust 3-way catheter; however, the patient's blood pressure was running low and the hospitalist group was consulted to manage the low blood pressure. There was no history of chest pain, no history of shortness of breath. An order was given to give the patient a bolus dose of normal saline 500 mL followed by maintenance dose of 150 mL an hour of normal saline. Also, the order was given to stop the half normal saline that the patient had at the time of hypotension prior to going back to OR. The patient successfully went to the OR and had the catheter adjusted and came back with blood pressure running at about 108/49 with a pulse of 107, O2 sat of 96%, and respiration of about 23. PAST MEDICAL HISTORY: Pertinent for gastroesophageal reflux disease and high blood pressure. PAST SURGICAL HISTORY: Pertinent for this recent TURP and cystoscopy. PHYSICAL EXAMINATION: GENERAL: On exam, the patient was found to be alert, oriented x3. VITAL SIGNS: Pulse 107, blood pressure 108/49, respirations 28, and O2 sat of 96% on room air. HEENT: Showed oral mucosa to be moist. Pupils were equal, round, and reactive to light and accommodating. Extraocular muscles were intact. NECK: Supple with no JVD or carotid bruit. CARDIOVASCULAR: Showed normal first and second heart sounds with no gallops or murmur. RESPIRATORY: Showed good air entry on both sides of the lungs with no abnormal breath sounds. GASTROINTESTINAL: Showed abdomen to be full, soft, nontender with no organomegaly or rigidity. NEUROLOGIC: Showed no focal deficits. MUSCULOSKELETAL: Showed no joint swelling or tenderness. DERMATOLOGIC: Showed no skin rash. GENITOURINARY: Showed the catheter still draining some light pink-colored urine. DIAGNOSIS: Postop patient with a normal blood pressure. PLAN: The patient will be placed on normal saline if the blood pressure goes below the current 108/49 and the heart rate run at 160 an hour with boluses to be given to maintain the MAP at 65 and the hospitalist group will follow. [facility]# [id number] OCN/NTS RAMAND
[2017-06-17] MEDS: LACTATED RINGERS 1,000 ML IV SCH ×2 (00:34→08:19)
[2017-06-17] MEDS: NACL 0.9% IR SCH ×4 (01:25→06:31)
[2017-06-17 04:36] LABS: Basophils % (Auto) 0.4 % (0.0-1.8); Hematocrit 22.9 % (35.5-45.6); Hemoglobin 7.6 gm/dl (11.8-15.2); Mean Corpuscular HGB Conc 33 % (32-34); Mean Corpuscular Hemoglobin 29 pg (28-32); Mean Corpuscular Volume 88 fl (84-94); Platelet Count 221 K/mm3 (140-440); Red Blood Count 2.59 M/mm3 (3.65-5.03); Red Cell Distribution Width 14.3 % (13.2-15.2)
[2017-06-17 04:51] LABS: Anion Gap 13 mmol/L; BUN/Creatinine Ratio 11.42; Blood Urea Nitrogen 8 mg/dL (9-20); Calcium 7.5 mg/dL (8.4-10.2); Carbon Dioxide 30 mmol/L (22-30); Chloride 98.9 mmol/L (98-107); Glucose 114 mg/dL (75-100); Sodium 139 mmol/L (137-145)
[2017-06-17] MEDS ORDERED: K-DUR PO ONE (08:53)
[2017-06-17] MEDS: KEPPRA PO SCH (09:57)
[2017-06-17] MEDS ORDERED: NACL 0.9% 250ML 250 ML ONE (10:35)
[2017-06-17 15:55] VITALS: BP 140/76
[2017-06-17] MEDS ORDERED: NACL 0.9% IR SCH (16:00)
--- NOTE | 2017-06-17 17:18 | Discharge Summary ---
Providers - Providers Date of Admission: 06/17/17 11:00 Date of discharge: 06/17/17 Attending physician: NANDINI JIMENEZ 06/15/17 17:07 Consult to Physician [CONS] Routine Consulting Provider: KELTON LR Reason For Exam: HTN MANAGMENT Place consult to:: DR. KELOTN LR Notified:: yes Phone number called:: [phone] Was contact made?: No Time called:: 08:45 Comment:: DR Lr states he will see patient 06/16/17 03:23 Consult to Physician [CONS] Routine Consulting Provider: MARIJA MCNEAL Reason For Exam: ICU ADMISSION Place consult to:: DR MCNEAL Notified:: YES Primary care physician: KELTON LR Hospitalization Condition: Stable Procedures: turp cysto clot evacuation Disposition: DC-01 TO HOME OR SELFCARE Core Measure Documentation - Palliative Care Palliative Care/ Comfort Measures: Not Applicable - Core Measures Any of the following diagnoses?: none - VTE Discharge Requirements Deep Vein Thrombosis/Pulmonary Embolism Present on Admission: No Has pt received <5 days of overlap therapy or INR<2.0: No Anticoagulant overlap therapy prescribed at discharge: No Contraindication No Overlap Therapy order at DC: Medical Contraindication - Acute [place] Discharge Requirements Aspirin at discharge: No Reason for no aspirin on DC: Surgical contraindication DREW/ARB for LVSD if EF <40%: Not Applicable Reason for no DREW/ARB: Medical contraindication Beta shayla at discharge: No Reason for no beta shayla on DC: Medical contraindication Statin for LDL = or >100 mg/dl on DC: Not Applicable Reason for no statin on DC: Surgical contraindication - Heart Failure Discharge Requirements DREW/ARB for LVSD if EF <40%: Not Applicable Reason for no DREW/ARB: Medical contraindication Beta shayla at discharge: No Reason for no beta shayla on DC: Medical contraindication - Stroke Discharge Requirements Statin for LDL = or >70 mg/dl on DC: Not Applicable Reason for no statin on DC: Medical Contraindication Anticoag for atrial fib/atrial flutter: Not Applicable Reason for no anticoag for AF/F on DC: Medical Contraindication Antithrombotic for ischemic stroke: No Reason for no antithrombotic on DC: Medical Contraindication Exam - Constitutional Vitals: Temp Pulse Resp BP Pulse Ox 98.4 F 100 H 20 140/76 100 06/17/17 15:53 06/17/17 15:53 06/17/17 15:53 06/17/17 15:53 06/17/17 15:53 General appearance: Present: no acute distress, well-nourished - EENT Eyes: Present: PERRL ENT: hearing intact, clear oral mucosa - Neck Neck: Present: supple, normal ROM - Respiratory Respiratory effort: normal Respiratory: bilateral: CTA - Cardiovascular Heart Sounds: Present: S1 & S2. Absent: rub, click - Extremities Extremities: pulses symmetrical, No edema Peripheral Pulses: within normal limits - Abdominal General gastrointestinal: Present: soft, non-tender, non-distended, normal bowel sounds Male genitourinary: Present: normal - Integumentary Integumentary: Present: clear, warm, dry - Musculoskeletal Musculoskeletal: gait normal, strength equal bilaterally - Psychiatric Psychiatric: appropriate mood/affect, intact judgment & insight - Neurologic Neurologic: CNII-XII intact, moves all extremities Plan Diet: regular Follow up with: KELTON LR MD [Primary Care Provider] - 7 Days
--- NOTE | 2017-06-17 18:08 | Progress Note ---
Assessment and Plan Assessment and plan: We have been consulted for hypotension and patient was given IV fluid before he went to the procedure and his blood pressure was normalized. His blood pressure from this morning was within normal limits. Patient didn't have any dizziness or palpitation. Patient is stable hemodynamically. I will sigh off Please call me if you have any questions. Thank you for the consult. History Interval history: patient denied palpitation or dizziness Hospitalist Physical - Physical exam Narrative exam: Not in cardiopulmonary distress. The patient appeared well nourished and normally developed. Vital signs as documented. Head exam is unremarkable. No scleral icterus . Neck is without jugular venous distension, thyromegaly, or carotid bruits. Lungs are clear to auscultation. Cardiac exam reveals regular rate and Rhythm. First and second heart sounds normal. No murmurs, rubs or gallops. Abdominal exam reveals normal bowel sounds, no masses, no organomegaly and no aortic enlargement. Extremities are nonedematous and both femoral and pedal pulses are normal. EVAPORATOR REPAIRER: Alert and oriented 3. No focal weakness. - Constitutional Vitals: Temp Pulse Resp BP Pulse Ox 98.4 F 100 H 20 140/76 100 06/17/17 15:53 06/17/17 15:53 06/17/17 15:53 06/17/17 15:53 06/17/17 15:53 General appearance: Present: no acute distress, well-nourished Results - Labs CBC & Chem 7: 06/17/17 04:16 06/17/17 04:16 Labs: Laboratory Last Values WBC 14.0 K/mm3 (4.5-11.0) H 06/17/17 04:16 RBC 2.59 M/mm3 (3.65-5.03) L 06/17/17 04:16 Hgb 7.6 gm/dl (11.8-15.2) L 06/17/17 04:16 Hct 22.9 % (35.5-45.6) L 06/17/17 04:16 MCV 88 fl (84-94) 06/17/17 04:16 MCH 29 pg (28-32) 06/17/17 04:16 MCHC 33 % (32-34) 06/17/17 04:16 RDW 14.3 % (13.2-15.2) 06/17/17 04:16 Plt Count 221 K/mm3 (140-440) 06/17/17 04:16 Lymph % (Auto) 11.9 % (13.4-35.0) L 06/17/17 04:16 Labette % (Auto) 2.3 % (0.0-7.3) 06/17/17 04:16 Eos % (Auto) 1.0 % (0.0-4.3) 06/17/17 04:16 Baso % (Auto) 0.4 % (0.0-1.8) 06/17/17 04:16 Lymph # 1.7 K/mm3 (1.2-5.4) 06/17/17 04:16 Labette # 0.3 K/mm3 (0.0-0.8) 06/17/17 04:16 Eos # 0.1 K/mm3 (0.0-0.4) 06/17/17 04:16 Baso # 0.1 K/mm3 (0.0-0.1) 06/17/17 04:16 Add Manual Diff Complete 06/16/17 05:52 Total Counted 100 06/16/17 05:52 Seg Neutrophils % 84.4 % (40.0-70.0) H 06/17/17 04:16 Seg Neuts % (Manual) 95.0 % (40.0-70.0) H 06/16/17 05:52 Band Neutrophils % 0 % 06/16/17 05:52 Lymphocytes % (Manual) 3.0 % (13.4-35.0) L 06/16/17 05:52 Reactive Lymphs % (Man) 0 % 06/16/17 05:52 Monocytes % (Manual) 2.0 % (0.0-7.3) 06/16/17 05:52 Eosinophils % (Manual) 0 % (0.0-4.3) 06/16/17 05:52 Basophils % (Manual) 0 % (0.0-1.8) 06/16/17 05:52 Metamyelocytes % 0 % 06/16/17 05:52 Myelocytes % 0 % 06/16/17 05:52 Promyelocytes % 0 % 06/16/17 05:52 Blast Cells % 0 % 06/16/17 05:52 Nucleated RBC % Not Reportable 06/16/17 05:52 Seg Neutrophils # 11.8 K/mm3 (1.8-7.7) H 06/17/17 04:16 Seg Neutrophils # Man 11.0 K/mm3 (1.8-7.7) H 06/16/17 05:52 Band Neutrophils # 0.0 K/mm3 06/16/17 05:52 Lymphocytes # (Manual) 0.3 K/mm3 (1.2-5.4) L 06/16/17 05:52 Abs React Lymphs (Man) 0.0 K/mm3 06/16/17 05:52 Monocytes # (Manual) 0.2 K/mm3 (0.0-0.8) 06/16/17 05:52 Eosinophils # (Manual) 0.0 K/mm3 (0.0-0.4) 06/16/17 05:52 Basophils # (Manual) 0.0 K/mm3 (0.0-0.1) 06/16/17 05:52 Metamyelocytes # 0.0 K/mm3 06/16/17 05:52 Myelocytes # 0.0 K/mm3 06/16/17 05:52 Promyelocytes # 0.0 K/mm3 06/16/17 05:52 Blast Cells # 0.0 K/mm3 06/16/17 05:52 WBC Morphology Not Reportable 06/16/17 05:52 Hypersegmented Neuts Not Reportable 06/16/17 05:52 Hyposegmented Neuts Not Reportable 06/16/17 05:52 Hypogranular Neuts Not Reportable 06/16/17 05:52 Smudge Cells Not Reportable 06/16/17 05:52 Toxic Granulation Not Reportable 06/16/17 05:52 Toxic Vacuolation Not Reportable 06/16/17 05:52 Dohle Bodies Not Reportable 06/16/17 05:52 Pelger-Huet Anomaly Not Reportable 06/16/17 05:52 Fely Rods Not Reportable 06/16/17 05:52 Platelet Estimate Appears normal 06/16/17 05:52 Clumped Platelets Not Reportable 06/16/17 05:52 Plt Clumps, EDTA Not Reportable 06/16/17 05:52 Large Platelets Not Reportable 06/16/17 05:52 Giant Platelets Not Reportable 06/16/17 05:52 Platelet Satelliting Not Reportable 06/16/17 05:52 Plt Morphology Comment Not Reportable 06/16/17 05:52 RBC Morphology Not Reportable 06/16/17 05:52 Dimorphic RBCs Not Reportable 06/16/17 05:52 Polychromasia Not Reportable 06/16/17 05:52 Hypochromasia Not Reportable 06/16/17 05:52 Poikilocytosis Not Reportable 06/16/17 05:52 Anisocytosis Rare 06/16/17 05:52 Microcytosis Not Reportable 06/16/17 05:52 Macrocytosis Not Reportable 06/16/17 05:52 Spherocytes Not Reportable 06/16/17 05:52 Pappenheimer Bodies Not Reportable 06/16/17 05:52 Sickle Cells Not Reportable 06/16/17 05:52 Target Cells Not Reportable 06/16/17 05:52 Tear Drop Cells Not Reportable 06/16/17 05:52 Ovalocytes Not Reportable 06/16/17 05:52 Helmet Cells Not Reportable 06/16/17 05:52 Colvin-Hargill Bodies Not Reportable 06/16/17 05:52 Norden Rings Not Reportable 06/16/17 05:52 [place] Cells Not Reportable 06/16/17 05:52 Bite Cells Not Reportable 06/16/17 05:52 Crenated Cell Not Reportable 06/16/17 05:52 Elliptocytes Not Reportable 06/16/17 05:52 Acanthocytes (Spur) Not Reportable 06/16/17 05:52 Rouleaux Not Reportable 06/16/17 05:52 Hemoglobin C Crystals Not Reportable 06/16/17 05:52 Schistocytes Not Reportable 06/16/17 05:52 Malaria parasites Not Reportable 06/16/17 05:52 Rashid Bodies Not Reportable 06/16/17 05:52 Hem Pathologist Commnt No 06/16/17 05:52 PT 12.4 Sec. (12.2-14.9) 06/13/17 15:00 INR 0.93 (0.87-1.13) 06/13/17 15:00 APTT 28.3 Sec. (24.2-36.6) 06/13/17 15:00 Sodium 139 mmol/L (137-145) 06/17/17 04:16 Potassium 3.0 mmol/L (3.6-5.0) L 06/17/17 04:16 Chloride 98.9 mmol/L (98-107) 06/17/17 04:16 Carbon Dioxide 30 mmol/L (22-30) 06/17/17 04:16 Anion Gap 13 mmol/L 06/17/17 04:16 BUN 8 mg/dL (9-20) L 06/17/17 04:16 Creatinine 0.7 mg/dL (0.8-1.5) L 06/17/17 04:16 Estimated GFR > 60 ml/min 06/17/17 04:16 BUN/Creatinine Ratio 11.42 % 06/17/17 04:16 Glucose 114 mg/dL (75-100) H 06/17/17 04:16 Calcium 7.5 mg/dL (8.4-10.2) L 06/17/17 04:16 Total Bilirubin 0.20 mg/dL (0.1-1.2) 06/16/17 00:13 AST 9 units/L (5-40) 06/16/17 00:13 ALT 9 units/L (7-56) 06/16/17 00:13 Alkaline Phosphatase 71 units/L (35-129) 06/16/17 00:13 Total Protein 5.8 g/dL (6.3-8.2) L D 06/16/17 00:13 Albumin 3.1 g/dL (3.9-5) L 06/16/17 00:13 Albumin/Globulin Ratio 1.1 % 06/16/17 00:13 Blood Type O POSITIVE 06/15/17 14:45 Antibody Screen TNR 06/15/17 14:45 CHRISTIANO Antibody Screen Negative 06/15/17 14:45 Crossmatch See Detail 06/15/17 14:45
--- NOTE | 2017-06-20 07:59 | Operative Report ---
PREOPERATIVE DIAGNOSES: 1. Schizophrenia. 2. Clot retention. POSTOPERATIVE DIAGNOSES: 1. Schizophrenia. 2. Clot retention. PROCEDURES: Cystoscopy, evacuation of clots. FINDINGS: Post TUR effect, large clots in the bladder, these were thickened, organized clots, were difficult to irrigate. No cystogram. No tumor. No extravasation. CLINICAL INDICATION: The patient and his sister, power of workers compensation attorney were counseled on RCBA, antibiotics, SCDs. The patient had had a TURP, had gone to the floor, had discussed with the PACU. This was done by my partner, Dr. Basurto, but I actually personally discussed with the PACU nurse when I found out about difficulty irrigating the catheter. In the PACU, he seems to be was happened expected bleeding, but was irrigating well as long as the irrigation was kept running. The patient proceeded to the floor around 5:30 to 6:00, possibly around shift change, I was called and the patient there had been attempting to irrigate and nursing stated that they were unable to irrigate; however, the bladder scan residual urine were only demonstrating may be 150 mL within the bladder. Clearly with past experiences, there have been possible bladder spasms and it was reported that he was leaking around the catheter, but was not over distended and not having pain at rest, only occasionally, he would have pain and his bladder volume was only about 150 mL and potentially spasm around the catheter. They had continued difficulty, at that point, I came in. I did irrigate the catheter, manipulated the catheter. I was able to get some drainage. At that point, I also had the robotics technician come up with live ultrasound, but we were only getting residual volumes of about anywhere from 50 to 150, less than 50 after I had manipulated the catheter with a Glidewire. It seems that the patient with continued pain and catheter was difficult to irrigate. At this point, we were considering obtaining out the catheter and some more aggressive manipulations sometimes required. The patient was having some hypertension resolved with bolus, also with patient's schizophrenia, was a little bit to manage and for the patient to understand and cooperate, was elected to have the safest thing at this point, was to proceed under anesthesia under a controlled situation, but due to the patient's pain and bladder not irrigating and the patient was starting to have progressive severe pain and hypertension, it was elected to go ahead and do this under anesthesia. The patient was taken to the operating room, had antibiotics, SCDs. DESCRIPTION OF PROCEDURE: The patient was taken to the operating room in supine position. Anesthesia begun, dorsal lithotomy position, prepped and draped in our standard fashion. At this point, catheter was removed. Scope passed. There was some diffuse oozing from the prostate, but this is expected post TUR. No clear pulsating or bleeding, but this point, cystoscopy was performed. There was a large clot. We did have to hold several times. The patient did have some problems with the emesis during the procedure and then, there was some uncertainty that there were some possible fluctuations in vitals, so we did proceed with caution or slowly and pause and allowed the patient to be fully evaluated and treated as possible and stable. We have irrigated. We attempted to larger cystoscope sheath. We had difficulty evacuating clots with the smaller 22-English sheath. We were unable to locate the sheath and eventually, this was located, which provided better aspiration of the clots once we evacuated the clots well. We were able to inspect the bladder. There was no obvious lesion. No obvious tear and the clot had been evacuated. At this point, a 26-English three-way catheter was then placed without difficulty and without the catheter guide, went to the bladder balloon inflated to 60 mL, contrast subjected cystogram demonstrated no extravasation or leak at this point. We monitored the patient very closely. The catheter was draining. We pulled this on just very gentle traction and monitored the catheter well at this point. At this point, there was draining well and draining clearly with continuous irrigation. The patient was awakened and transferred to PACU in stable condition. JOB# [id number] ATS/NTS
== END 2017-06-17 18:58 | disposition home or self-care (01) | DRG 714 ==
LOC: OR 12:15 → 2B-SURG 17:07 → CC1 06-16 06:25 → 3A 06-16 16:01 → 2B-SURG 06-16 17:45 → OBSVTOIN 06-17 11:00
PROVIDERS: ADMIT Urology; ATTEND Urology
PROC: 0VT08ZZ Resection of Prostate, Via Natural or Artificial Opening Endoscopic (ICD-10-PCS; principal; 2017-06-15)
PROC: BT141ZZ Fluoroscopy of Kidneys, Ureters and Bladder using Low Osmolar Contrast (ICD-10-PCS; 2017-06-15)
PROC: 0DBP8ZX Excision of Rectum, Via Natural or Artificial Opening Endoscopic, Diagnostic (ICD-10-PCS; 2017-06-15)
PROC: 30233N1 Transfusion of Nonautologous Red Blood Cells into Peripheral Vein, Percutaneous Approach (ICD-10-PCS; 2017-06-15)
PROC: 0TCB8ZZ Extirpation of Matter from Bladder, Via Natural or Artificial Opening Endoscopic (ICD-10-PCS; 2017-06-16)
DX: N40.1 Benign prostatic hyperplasia with lower urinary tract symptoms (principal); R33.8 Other retention of urine; K21.9 Gastro-esophageal reflux disease without esophagitis; I10 Essential (primary) hypertension
CPT/HCPCS: 36415; 71010; 74420; 74430; 76857; 76998; 80048; 80053; 85007; 85025; 85610; 85730; 86850; 86900; 86901; 86920; 88305; A4217; C1769; G0378; J0330; J0690; J1100; J1170; J2270; J2370; J2405; J2704; J2710; J7030; J7050; J7120; P9016; Q9967

== ENCOUNTER 2017-06-19 16:21 | Emergency (ER) | payer MEDICARE ==
[2017-06-19 16:39] VITALS: BP 104/60
--- NOTE | 2017-06-19 18:23 | Emergency Department Report ---
ED Male HPI - General Chief complaint: Urogenital-Male Stated complaint: CATH NEEDS TO BE REPLACED Time Seen by Provider: 06/19/17 18:22 Source: patient, family Mode of arrival: Ambulatory Limitations: Other - History of Present Illness Initial comments: Condition is a 62-year-old male past medical history of BPH status post TURP. Who presents with leaky urinary catheter. Patient denies any dysuria, hematuria or any abdominal pain. He states that he had his procedure 2 days ago. Was sent home with a Leiva with a leg bag. Patient states that whenever he tries to urinate he has some urine leaking from the tip of his urethra and from his Leiva bag. He states that he wants to fix the urinary leaking. Patient denies having any other complaints. Patient states that this problem has been going on for the last 2 days. He states that he had this procedure done today under Dr. Basurto. - Related Data Home Medications Medication Instructions Recorded Confirmed Last Taken Omeprazole [PriLOSEC] 20 mg PO QDAY 08/31/14 06/15/17 06/14/17 amLODIPine [Norvasc] 10 mg PO DAILY 08/31/14 06/15/17 06/14/17 Losartan/Hydrochlorothiazide 1 tab PO DAILY 06/13/17 06/15/17 06/15/17 07:00 [Losartan-Hctz 100-25 mg Tab] Tamsulosin [Flomax] 0.8 mg PO QDAY 06/13/17 06/13/17 06/14/17 cloNIDine [Catapres] 0.2 mg PO TID 06/13/17 06/15/17 06/14/17 cloZAPine [cloZAPine] 150 mg PO QHS 06/13/17 06/15/17 06/15/17 07:00 Previous Rx's Medication Instructions Recorded Last Taken Type ARIPiprazole [Abilify TAB] 15 mg PO HS tablet 05/03/16 06/14/17 Rx levETIRAcetam [Keppra TAB] 750 mg PO BID #60 tablet 05/14/16 06/15/17 07:00 Rx Allergies Allergy/AdvReac Type Severity Reaction Status Date / Time No Known Allergies Allergy Verified 06/04/17 09:38 ED Review of Systems ROS: Stated complaint: CATH NEEDS TO BE REPLACED Other details as noted in HPI Constitutional: denies: chills, fever Eyes: denies: eye pain, eye discharge, vision change ENT: denies: ear pain, throat pain Respiratory: denies: cough, shortness of breath, wheezing Cardiovascular: denies: chest pain, palpitations Endocrine: no symptoms reported Gastrointestinal: denies: abdominal pain, nausea, diarrhea Genitourinary: other (patient has a Leiva catheter which leaks) Musculoskeletal: denies: back pain, joint swelling, arthralgia Skin: denies: rash, lesions Neurological: denies: headache, weakness, paresthesias Psychiatric: denies: anxiety, depression Hematological/Lymphatic: denies: easy bleeding, easy bruising ED Past Medical Hx - Past Medical History Previous Medical History?: Yes Hx Hypertension: Yes (X 9 YRS) Hx Congestive Heart Failure: No Hx Diabetes: No Hx GERD: Yes Hx Seizures: Yes (X1 AFTER LUM MONTIEL-ON MEDS) Hx Psychiatric Treatment: Yes Hx Asthma: No Hx COPD: Yes Hx HIV: No - Surgical History Past Surgical History?: Yes Additional Surgical History: Kwesi foot surgery, TURP 06-14-2017 - Social History Smoking Status: Never Smoker Substance Use Type: Prescribed - Medications Home Medications: Home Medications Medication Instructions Recorded Confirmed Last Taken Type Omeprazole [PriLOSEC] 20 mg PO QDAY 08/31/14 06/15/17 06/14/17 History amLODIPine [Norvasc] 10 mg PO DAILY 08/31/14 06/15/17 06/14/17 History ARIPiprazole [Abilify TAB] 15 mg PO HS tablet 05/03/16 06/13/17 06/14/17 Rx levETIRAcetam [Keppra TAB] 750 mg PO BID #60 tablet 05/14/16 06/13/17 06/15/17 07:00 Rx Losartan/Hydrochlorothiazide 1 tab PO DAILY 06/13/17 06/15/17 06/15/17 07:00 History [Losartan-Hctz 100-25 mg Tab] Tamsulosin [Flomax] 0.8 mg PO QDAY 06/13/17 06/13/17 06/14/17 History cloNIDine [Catapres] 0.2 mg PO TID 06/13/17 06/15/17 06/14/17 History cloZAPine [cloZAPine] 150 mg PO QHS 06/13/17 06/15/1706/15/17 07:00 History ED Physical Exam - General Limitations: Other General appearance: alert, in no apparent distress - Head Head exam: Present: atraumatic, normocephalic - Eye Eye exam: Present: normal appearance - ENT ENT exam: Present: mucous membranes moist - Neck Neck exam: Present: normal inspection - Respiratory Respiratory exam: Present: normal lung sounds bilaterally. Absent: respiratory distress - Cardiovascular Cardiovascular Exam: Present: regular rate, normal rhythm. Absent: systolic murmur, diastolic murmur, rubs, gallop - GI/Abdominal GI/Abdominal exam: Present: soft, normal bowel sounds - Rectal Rectal exam: Present: deferred - exam: Present: other (she has a large Leiva catheter in his urethra connected to a Leiva bag which is draining yellow urine but has some drops of leaking.) - Extremities Exam Extremities exam: Present: normal inspection - Back Exam Back exam: Present: normal inspection - Neurological Exam Neurological exam: Present: alert, oriented X3 - Psychiatric Psychiatric exam: Present: normal affect - Skin Skin exam: Present: warm, dry, intact, normal color. Absent: rash ED Course Vital Signs 06/19/17 06/19/17 16:31 18:39 Temperature 98.3 F Pulse Rate 97 H Respiratory 18 18 Rate Blood Pressure 104/60 O2 Sat by Pulse 98 Oximetry - Reevaluation(s) Reevaluation #1: 06/19/17 20:50 His full back is unchanged discussed with patient that he'll need to follow up with his urologist tomorrow. Dr. Basurto and that he has no emergent urology call issue ED Medical Decision Making - Medical Decision Making Chief medical diagnosis: Malfunctioning leiva catheter Differential medical diagnosis: Leiva catheter malfunction, small Leiva size I will change patient's Leiva catheter I will not replace patient's Leiva as he just had a procedure 2 days ago and I do not want to cause further injury. Patient has no emergent medical issue. And he can follow up tomorrow with his urologist. Critical care attestation.: If time is entered above; I have spent that time in minutes in the direct care of this critically ill patient, excluding procedure time. ED Disposition Clinical Impression: Leiva catheter problem Qualifiers: Encounter type: initial encounter Qualified Code(s): T83.9XXA - Unspecified complication of genitourinary prosthetic device, implant and graft, initial encounter Disposition: TO HOME OR SELFCARE Is pt being admited?: No Does the pt Need Aspirin: No Condition: Good Instructions: Leiva Catheter Placement and Care (ED), Urinary Leg Bag (GEN) Additional Instructions: PLEASE SEE YOUR UROLOGIST TOMORROW ABOUT YOUR LEAKING LEIVA. Referrals: PRIMARY CARE, [Primary Care Provider] - 3-5 Days NANDINI BASURTO MD [Staff Physician] - 3-5 Days Time of Disposition: 20:20
== END 2017-06-19 19:40 | disposition home or self-care (01) ==
LOC: ED 16:21
DX: T83.038A Leakage of other urinary catheter, initial encounter (principal); I10 Essential (primary) hypertension; K21.9 Gastro-esophageal reflux disease without esophagitis; J44.9 Chronic obstructive pulmonary disease, unspecified
CPT/HCPCS: 99282